=== PATIENT | female | born 1945 | race Caucasian/White ===

== ENCOUNTER → 2018-06-15 15:18 | Outpatient (CLI) | payer MEDICARE, OTHER, SELFPAY ==
--- NOTE | 2018-06-15 | DI.MG.S_ITS ---
BILATERAL DIGITAL SCREENING MAMMOGRAM 3D/2D WITH CAD POST LUMPECTOMY: 06/15/2018 CLINICAL: Routine screening. Personal history of left breast cancer. Comparison is made to exams dated: 06/01/2017 mammogram - [facility], 04/25/2016 mammogram, and 06/28/2015 mammogram - [facility]. There are scattered fibroglandular elements in both breasts. Current study was also evaluated with a Computer Aided Detection (CAD) system. There are benign post operative findings in the left breast. There also are benign vascular calcifications in the left breast. No significant masses, calcifications, or other findings are seen in either breast. There has been no significant interval change. IMPRESSION: There is no mammographic evidence of malignancy. A 1 year screening mammogram is recommended. This exam was interpreted at Station ID: [id number]. NOTE: For mammograms, a report in lay terms will be sent to the patient. Approximately 15% of breast malignancies will not be visualized mammographically. In the management of a palpable breast mass, a negative mammogram must not discourage biopsy of a clinically suspicious lesion. Electronically Signed By: Kuldip cash/jose:06/16/2018 08:27:33 letter sent: Normal Exam ACR BI-RADS Category 2: Benign Finding(s) 3342F
== END ==
PROVIDERS: PCP Family Medicine; Visit Provider Family Medicine
DX: Z12.31 Encounter for screening mammogram for malignant neoplasm of breast (principal); Z85.3 Personal history of malignant neoplasm of breast
CPT/HCPCS: 77063; 77067

== ENCOUNTER → 2019-06-16 12:38 | Outpatient (CLI) | payer MEDICARE, OTHER, SELFPAY ==
--- NOTE | 2019-06-16 | DI.MG.S_ITS ---
BILATERAL DIGITAL SCREENING MAMMOGRAM 3D/2D WITH CAD POST LUMPECTOMY: 06/16/2019 CLINICAL: Routine screening. Personal history of left breast cancer. Comparison is made to exams dated: 06/15/2018 mammogram, 06/01/2017 mammogram - [facility], and 04/25/2016 mammogram - [facility]. There are scattered fibroglandular elements in both breasts. Current study was also evaluated with a Computer Aided Detection (CAD) system. There are benign vascular calcifications in the left breast. There also are benign post operative findings in the left breast. No significant masses, calcifications, or other findings are seen in either breast. There has been no significant interval change. IMPRESSION: There is no mammographic evidence of malignancy. A 1 year screening mammogram is recommended. This exam was interpreted at Station ID: [id number]. NOTE: For mammograms, a report in lay terms will be sent to the patient. Approximately 15% of breast malignancies will not be visualized mammographically. In the management of a palpable breast mass, a negative mammogram must not discourage biopsy of a clinically suspicious lesion. Electronically Signed By: Reyes diez/jose:06/16/2019 18:23:38 letter sent: Normal Exam ACR BI-RADS Category 2: Benign Finding(s) 3342F
== END ==
PROVIDERS: PCP Family Medicine; Visit Provider Family Medicine
DX: Z12.31 Encounter for screening mammogram for malignant neoplasm of breast (principal); Z85.3 Personal history of malignant neoplasm of breast
CPT/HCPCS: 77063; 77067

== ENCOUNTER → 2020-08-23 17:10 | Outpatient (CLI) | payer MEDICARE, OTHER, SELFPAY ==
--- NOTE | 2020-08-23 | DI.MG.S_ITS ---
BILATERAL DIGITAL SCREENING MAMMOGRAM 3D/2D WITH CAD: 08/23/2020 CLINICAL: Routine screening. Personal history of left breast cancer. Family history of breast cancer. Comparison is made to exams dated: 06/16/2019 mammogram, 06/15/2018 mammogram, and 06/01/2017 mammogram - [facility]. There are scattered fibroglandular elements in both breasts. Current study was also evaluated with a Computer Aided Detection (CAD) system. There are benign vascular calcifications in the left breast. There also are benign post operative findings in the left breast. No significant masses, calcifications, or other findings are seen in either breast. There has been no significant interval change. IMPRESSION: BENIGN There is no mammographic evidence of malignancy. A 1 year screening mammogram is recommended. This exam was interpreted at Station ID: [id number]. NOTE: For mammograms, a report in lay terms will be sent to the patient. Approximately 15% of breast malignancies will not be visualized mammographically. In the management of a palpable breast mass, a negative mammogram must not discourage biopsy of a clinically suspicious lesion. Electronically Signed By: Kuldip cash/jose:08/24/2020 08:16:10 letter sent: Normal Exam ACR BI-RADS Category 2: Benign Finding(s) 3342F
== END ==
PROVIDERS: PCP Family Medicine; Referring Provider Family Medicine; Visit Provider Family Medicine
DX: Z12.31 Encounter for screening mammogram for malignant neoplasm of breast (principal); Z85.3 Personal history of malignant neoplasm of breast; Z80.3 Family history of malignant neoplasm of breast
CPT/HCPCS: 77063; 77067

== ENCOUNTER → 2021-08-26 11:11 | Outpatient (CLI) | payer MEDICARE, SELFPAY ==
--- NOTE | 2021-08-26 | DI.MG.S_ITS ---
BILATERAL DIGITAL SCREENING MAMMOGRAM 3D/2D WITH CAD: 08/26/2021 CLINICAL: Routine screening. Personal history of left breast cancer. Family history of breast cancer. Comparison is made to exams dated: 08/23/2020 mammogram, 06/16/2019 mammogram, and 06/15/2018 mammogram - [facility]. There are scattered fibroglandular elements in both breasts. Current study was also evaluated with a Computer Aided Detection (CAD) system. There are benign vascular calcifications in the left breast. There also are benign post operative findings in the left breast. No significant masses, calcifications, or other findings are seen in either breast. There has been no significant interval change. IMPRESSION: BENIGN There is no mammographic evidence of malignancy. A 1 year screening mammogram is recommended. This exam was interpreted at Station ID: [id number]. NOTE: For mammograms, a report in lay terms will be sent to the patient. Approximately 15% of breast malignancies will not be visualized mammographically. In the management of a palpable breast mass, a negative mammogram must not discourage biopsy of a clinically suspicious lesion. Electronically Signed By: Arash michaud/jose:08/26/2021 13:03:52 letter sent: Normal Exam ACR BI-RADS Category 2: Benign Finding(s) 3342F
== END ==
PROVIDERS: PCP Family Medicine; Referring Provider Family Medicine; Visit Provider Family Medicine
DX: Z12.31 Encounter for screening mammogram for malignant neoplasm of breast (principal); Z85.3 Personal history of malignant neoplasm of breast; Z80.3 Family history of malignant neoplasm of breast
CPT/HCPCS: 77063; 77067

== ENCOUNTER 2023-08-20 06:31 | Day surgery (SDC) | payer MEDICARE, SELFPAY ==
[2023-08-18 14:24] VITALS: BMI 36.8
--- NOTE | 2023-08-20 | PATH_ITS ---
[facility] Accession Number: [id number] No. of containers..01 Tissue . 01 Material submitted: . endometrium - ENDOMETRIAL CURETTINGS . 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 Background polyp fragments. See comment. ROSIE 08/27/2023 1226 Local . 01 Comment: An attempt was made to call provider's office on 08/27/2023 at 1230 hours but was unsuccessful. Additional attempts will be made. As part of routine quality internship, this case was also reviewed by Dr. Ban Lang, who agrees with the interpretation. . 01 Electronically signed: . Maggie Muñoz MD, Pathologist NPI- [id number] . 01 Gross description: . ENDOMETRIAL CURETTINGS: Received in formalin is multiple fragment(s) of fonseca, soft tissue measuring 3.0 x 2.0 x 0.2 cm in aggregate submitted entirely in 1 cassette(s) /AAY 08/22/2023 0636 Local . 01 Pathologist provided ICD-10: N85.00, C54.1 . 01 CPT . 576194 Specimen Comment: A courtesy copy of this report has been sent to [phone] Performed at: 01 [facility] [address] [place] [address], [place], [place] [id number] MD Kuldip Prasad MD Phone: [phone]
[2023-08-20] MEDS: LACTATED RINGERS 1,000 ML 21 ML IV (07:11)
[2023-08-20 07:19] VITALS: BP 141/85; PULSE 75; RESP 18; TEMP 36.6; O2SAT 97; BMI 36.7
--- NOTE | 2023-08-20 07:21 | PM.GYNHP.1 ---
History of Present Illness History of Present Illness Reason for admission: vaginal bleeding Narrative: Kathy Lutz is a 77 year old female 3 para 3 who had an endometrial biopsy that showed at least complex endometrial hyperplasia with atypia. She had postmenopausal bleeding with a 4.8 mm endometrial lining. She has a history of breast cancer [facility] Medical History (Updated 08/18/23 @ 14:32 by Jennifer Oliver RN) Depression Impaired vision Kidney stones Prediabetes Difficulty swallowing Pain Arthritis Hyperlipidemia DJD (degenerative joint disease), lumbar Hypertension History of breast cancer Incisional hernia Surgical History (Updated 08/18/23 @ 14:32 by Jennifer Oliver RN) History of incisional hernia repair (01/06/18) H/O lithotripsy History of cataract surgery H/O colonoscopy H/O bilateral oophorectomy Hx of total knee arthroplasty Status post left breast lumpectomy Social History household members: spouse Smoking Status: Current every day smoker alcohol intake: current Meds Home Medications and Allergies Home Medications Medication Instructions Recorded Confirmed Type aspirin 81 mg chewable tablet 81 mg PO DAILY ##0 04/08/17 08/20/23 History atorvastatin 10 mg tablet (Lipitor) 10 mg PO QHS ##0 04/08/17 08/20/23 History cholecalciferol (vitamin D3) 125 5,000 unit PO DAILY ##0 04/08/17 08/20/23 History mcg (5,000 unit) capsule losartan 50 mg-hydrochlorothiazide 1 tab PO DAILY 12/30/17 08/20/23 History 12.5 mg tablet metoprolol succinate 25 mg 25 mg PO DAILY 11/11/18 08/20/23 History tablet,extended release 24 hr gabapentin 300 mg capsule 300 mg PO TID 07/31/23 08/20/23 History Allergies Allergy/AdvReac Type Severity Reaction Status Date / Time ampicillin Allergy Mild Rash Verified 08/20/23 07:30 amlodipine AdvReac Dizziness Verified 08/20/23 07:30 lisinopril AdvReac Dizziness Verified 08/20/23 07:30 Exam Narrative Exam Narrative: Generally: A well-developed, well-nourished female, no acute distress HEENT: No thyromegaly, no anterior cervical or supraclavicular lymphadenopathy. Lungs:Clear to auscultation bilaterally, no wheezes. Cardiovascular: Regular rate and rhythm, no murmurs, rubs, or gallops. Abdomen: Well-healed scars. No hepatosplenomegaly. No masses palpable. External genitalia: Normal Vagina: Normal Cervix: Normal Bimanual exam: 8 Week size anteverted uterus. Mobile. Extremities: No edema Assessment & Plan Assessment & Plan narrative: Assessment: 77-year-old 3 para 3 with at least complex endometrial hyperplasia with atypia on endometrial biopsy in the office History of breast cancer Plan: D&C hysteroscopy The risks, benefits, and alternatives to the procedure were explained to the patient. The risks including bleeding, infection, and uterine perforation. She understands these risks and agrees to proceed. A full par Q was held and consent form was signed. Time Spent With Patient Time with patient: less than 30 minutes
--- NOTE | 2023-08-20 07:23 | PM.PREOP ---
Pre-operative Note Interval Note History & Physical reviewed/Exam performed by Physician: Yes Changes to H&P: No H&P completed within 30 days and has changed as indicated here:: 08/20/23
--- NOTE | 2023-08-20 08:18 | SUR.OPER ---
Lithotomy on padded OR bed, head on pillow, arms secured on padded arm boards at <90 degrees abduction. Legs secured in padded yellow fins stirrups.
[2023-08-20 08:30] VITALS: BP 117/63; PULSE 67; RESP 16; TEMP 36.2; O2SAT 98
[2023-08-20 08:35] VITALS: BP 120/70; PULSE 67; RESP 16; TEMP 36.2; O2SAT 98
--- NOTE | 2023-08-20 08:39 | P.OP_ITS ---
Operative Date/Time/Diagnoses Date of procedure: 08/20/23 Time of procedure: 08:39 Pre-op diagnosis: Postmenopausal bleeding Complex endometrial hyperplasia with atypia on endometrial biopsy in the office Thickened endometrial lining on ultrasound Post-op diagnosis: same Procedure & Clinicians Procedure: Procedures Operation Date: 08/20/23 07:45 Actual Procedure Side Surgeon p Dilation and Curettage Hysteroscopy with MyoSure Jody Rand MD Indications: 77-year-old 3 para 3 with postmenopausal bleeding and a 4.8 mm endometrial lining on ultrasound. On endometrial biopsy in the office patient had at least complex endometrial hyperplasia with atypia She presents for a D&C hysteroscopy. Patient is status post bilateral salpingectomy Surgeon: Jody Rand Anesthesia Type: General (LMA) Operative Notes Findings: 8 week size anteverted uterus Both fallopian tube ostia observed Thickened, polypoid tissue on the anterior and posterior leonard of the uterus Closure Type: not applicable Specimen(s): endometrial curettings Estimated blood loss (mL): 3 Blood products transfused: none Procedure in detail: After informed consent was obtained, the patient was taken to the operating room where she was placed in the dorsal supine position. After adequate LMA general anesthesia was achieved, she was placed in the dorsal lithotomy position, and prepped and draped in the usual sterile fashion. A time-out was performed. A b ivalve speculum was placed into the vagina and the anterior lip of the cervix was grasped with a single-tooth tenaculum. The cervical os was sequentially dilated to the #8 Hegar dilator. The hysteroscope with MyoSure was passed easily into the endometrial cavity. Initial inspection with the hysteroscope revealed both fallopian tube ostia. There were some thickened polypoid areas on the anterior and posterior leonard of the uterus. The MyoSure was directed to that area and a large amount of tissue was obtained. The hysteroscope with MyoSure was removed from the uterus. Single-tooth tenaculum was removed from the anterior lip of the cervix. The bivalve speculum was removed from the vagina. Sponge, lap, and instrument counts were correct x2. The patient tolerated the procedure well, and was taken to PACU in stable condition. Fluid deficit: 285 cc. Cut time: 42 seconds Complications: none Post-operative Condition: stable Disposition: PACU Plan for aftercare: Home after recovery
[2023-08-20 08:40] VITALS: BP 119/67; PULSE 66; RESP 16; O2SAT 98
[2023-08-20] MEDS: OXYCODONE IR 5 MG TABLET PO (08:47)
[2023-08-20 08:58] VITALS: BP 128/77; PULSE 67; RESP 16; TEMP 36.2; O2SAT 98
== END 2023-08-20 09:41 | disposition home or self-care (01) ==
PROVIDERS: PCP Family Medicine; Referring Provider Obstetrics & Gynecology; Visit Provider Obstetrics & Gynecology
PROC: (CPT 58120; principal; 2023-08-20 07:45)
DX: N85.02 Endometrial intraepithelial neoplasia [EIN] (principal)
CPT/HCPCS: 58558; J1100; J1885; J2405; J2704